=== PATIENT | female | born 1985 | race Caucasian/White ===

== ENCOUNTER 2018-08-01 17:38 | Emergency (ER) | payer OTHER ==
[~2018-08-01] VITALS: Ht 162.6 cm; Wt 82.1 kg
[2018-08-01] MEDS ORDERED: OMEGA-31000 M1 PO (17:46)
[2018-08-01] MEDS ORDERED: VITAMINC500 PO (17:46)
[2018-08-01] MEDS ORDERED: TUMS PO (17:47)
[2018-08-01] MEDS ORDERED: PENICILLIN V P500 MG PO (18:11)
[2018-08-01] MEDS ORDERED: MAGIC MOUTHWASH SWISH&SPIT (18:11)
[2018-08-01 18:34] VITALS: BP 145/78
== END 2018-08-01 18:35 | disposition home or self-care (01) ==
LOC: ER 17:38
DX: K08.89 Other specified disorders of teeth and supporting structures (principal); R51 Headache